=== PATIENT | female | born 1980 | race Caucasian/White ===

== ENCOUNTER → 2022-12-27 08:48 | Outpatient (CLI) | payer BC, SELFPAY ==
--- NOTE | ~2022-12-27 | US_ITS ---
EXAMINATION: US thyroid DATE: 12/27/2022 09:04 INDICATION: Trouble swallowing. TECHNIQUE: Multiple ultrasound images of the thyroid were obtained. COMPARISON: None. FINDINGS: The right thyroid lobe measures 6.0 x 2.3 x 1.7 cm. The left thyroid lobe measures 5.8 x 2.0 x 2.0 c m. In the left thyroid lobe, there is a 1.6 cm solid, hypoechoic, taller than wide nodule with coars e calcifications with lobulated margin (TI-RADS TR5). In the right thyroid lobe, there is a 10 mm mix ed cystic and solid very hypoechoic nodule with smooth margin and peripheral calcifications (TR4). Th ere are subcentimeter nodules in the thyroid. IMPRESSION: 1. Thyroid nodules. Ultrasound-guided fine-needle aspiration of the 1.6 cm left thyroid nodule is rec ommended. Reviewed, dictated and finalized at location E. IMPRESSION: 1. Thyroid nodules. Ultrasound-guided fine-needle aspiration of the 1.6 cm left thyroid nodule is recommended.
== END ==
PROVIDERS: PCP Family Medicine; Visit Provider Family Medicine
DX: R13.10 Dysphagia, unspecified (principal); E04.2 Nontoxic multinodular goiter
CPT/HCPCS: 76536

== ENCOUNTER 2023-01-13 12:08 | Outpatient (CLI) | payer BC, SELFPAY ==
--- NOTE | ~2023-01-13 | US_ITS ---
EXAMINATION: US FNA w image guidance DATE: 01/13/2023 13:18 INDICATION: Thyroid nodule TECHNIQUE: A time-out was performed to verify the patient's name, date of , and procedure to be performed . The procedure and its benefits and risks were discussed with the patient. Risks specifically discus sed included bleeding and infection. The patient understood the risks and agreed to proceed. The neck was prepped and draped in the usual sterile manner. 3 mL 1% lidocaine was used for local anesthesia . 6 passes were made with a 25G needle into the lesion. Appropriate needle location was documented with continuous sonographic guidance. A sterile bandage was applied. There were no immediate compli cations. FINDINGS: Grayscale ultrasound images demonstrate biopsy needles advanced into a 2.0 cm solid hypoechoic nodule with internal coarse calcification in the inferior left thyroid lobe. IMPRESSION: 1. Successful ultrasound-guided fine needle aspiration of a 2.0 cm TI RADS 5 nodule at the inferior left thyroid. Reviewed, dictated and finalized at location A. IMPRESSION: 1. Successful ultrasound-guided fine needle aspiration of a 2.0 cm TI RADS 5 n odule at the inferior left thyroid.
== END 2023-01-13 12:09 | disposition home or self-care (01) ==
LOC: ANHIMG 12:12
PROVIDERS: PCP Family Medicine; Visit Provider Family Medicine
DX: E04.1 Nontoxic single thyroid nodule (principal)
CPT/HCPCS: 10005; 88173; 88305

== ENCOUNTER 2023-07-25 12:48 | Outpatient (CLI) | payer BC, SELFPAY ==
--- NOTE | ~2023-07-25 | US_ITS ---
EXAMINATION: US transvaginal DATE: 07/25/2023 14:38 INDICATION: Pelvic pain. TECHNIQUE: Multiple transvaginal sonographic images of the pelvis were obtained. COMPARISON: CT abdomen and pelvis 07/25/2023 FINDINGS: The uterus measures 11.1 x 5.6 x 6.3 cm. There is no free fluid in the pelvis. The endometrial comple x measures 5 mm in thickness. There is an intrauterine device in expected position. The right ovary m easures 2.9 x 2.6 x 2.4 cm. The left ovary measures 2.0 x 2.6 x 2.1 cm. There is normal vascular flow in the ovaries. IMPRESSION: 1. Intrauterine device in expected position. Reviewed, dictated and finalized at location E.
--- NOTE | ~2023-07-25 | CT_ITS ---
CT of the Abdomen and Pelvis: Indication: Ascites Technique: 2.5 mm axial scans were obtained through the abdomen and pelvis following intravenous adm inistration of 100 cc of Omnipaque 350. Dose reduction technique was used on this scan by utilizing a utomated exposure control and iterative reconstruction technique. The dose-length product (DLP) was 1 219.38 mGy-cm. COMPARISON: 06/01/2023 Findings: Scans through the lung bases are unremarkable. The liver, spleen, pancreas, adrenals and left kidney are within normal limits. Status post cholecyst ectomy. 3 mm nonobstructing right renal stone noted. No evidence of aortic aneurysm. No lymphadenopa thy. No bowel obstruction or bowel wall thickening. There is no evidence to suggest acute appendicitis. Sm all to moderate fat-containing umbilical hernia present. Images through the pelvis were performed. Urinary bladder unremarkable. IUD in place. No adnexal mass evident. Mildly prominent right ovary is similar to prior exam. No ascites. Impression: 3 mm nonobstructing right renal stone. Small to moderate fat-containing umbilical hernia. Reviewed, dictated and finalized at [facility]. Impression: 3 mm nonobstructing right renal stone. Small to moderate fat-containing umbilical hernia.
[2023-07-25 13:16] LABS: Estimated Glomerular Filt Rate > 60
== END 2023-07-25 12:49 ==
PROVIDERS: PCP Family Medicine; Visit Provider Family Medicine
DX: R18.8 Other ascites (principal); Z97.5 Presence of (intrauterine) contraceptive device
CPT/HCPCS: 74177; 76830; Q9967

== ENCOUNTER 2024-10-22 10:15 | Outpatient (CLI) | payer BC, SELFPAY ==
--- NOTE | ~2024-10-22 | US_ITS ---
US thyroid INDICATION: Nontoxic thyroid nodule TECHNIQUE: Real-time sonographic images of the thyroid gland were obtained. COMPARISON: Ultrasound dated 12/27/2022 FINDINGS: The right thyroid lobe measures 5.1 x 1.7 x 1.8 cm. The left thyroid lobe measures 4.9 x 1 .9 x 1.7 cm. Thyroid echotexture is heterogeneous. In the right lobe there is an oval spongiform-appe aring hypoechoic mass which is wider than tall, ill-defined margins and no internal calcifications me asuring 1 cm, TR 2, not suspicious. In the left lobe there is a heterogeneous hypoechoic mass which i s solid, hypoechoic, wider than tall, ill-defined margins with macrocalcifications measuring 1.3 cm, TR 4. IMPRESSION: 1. Bilateral thyroid nodules which are stable or diminished in size compared with prior study. No ma sses meet sonographic criteria for biopsy. Recommend follow-up ultrasound in 12 months. Reviewed, dictated and finalized at location B. IMPRESSION: 1. Bilateral thyroid nodules which are stable or diminished in size compared w ith prior study. No masses meet sonographic criteria for biopsy. Recommend foll ow-up ultrasound in 12 months.
--- OUTSIDE RECORDS SUMMARY | 2024-10-22 10:19 | XMS_ITS | Encounter Summary ---
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
--- OUTSIDE RECORDS SUMMARY | 2024-10-22 10:19 | XMS_ITS | Encounter Summary ---
Author Organization 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
--- OUTSIDE RECORDS SUMMARY | 2024-10-22 10:20 | XMS_ITS ---
Author Organization Unknown Address [address] [place] [phone] Phone Care Team Providers Care Order Builder Loader Name Role Phone JESUS MANUEL Leyva Attending Unavailable NATALIE Leyva Primary Unavailable Immunization Immunization Date Status Additional Notes Code Code System Novel [id number] 01/29/2009 Completed 127 CVX Influenza, split virus, quadrivalent, PF 02/03/2021 Completed 150 CVX Influenza, split virus, quadrivalent, PF 01/20/2022 Completed 150 CVX Influenza, split virus, quadrivalent, PF 01/26/2023 Completed 150 CVX Influenza, recombinant, quadrivalent, PF 01/22/2019 Completed 185 CVX COVID-19, mRNA, LNP-S, PF, 1 00 mcg/0.5mL dose or 50 mcg/0.25mL dose 04/07/2020 Completed 207 CVX COVID-19, mRNA, LNP-S, PF, 1 00 mcg/0.5mL dose or 50 mcg/0.25mL dose 05/16/2020 Completed 207 CVX COVID-19, mRNA, LNP-S, PF, 1 00 mcg/0.5mL dose or 50 mcg/0.25mL dose 02/11/2021 Completed 207 CVX Social History Type Status Start Date End Date Code Code Syst em Smoking History Never smoker (Never Smoked) [id number] SNOMED CT Sex Female Hospital Discharge Instructions Should you have any questions prior to discharge, please contact a member of your healthcare team. If you have left the hospital and have any questions, please contact your primary care physician. Reason For Referral No Data Found Procedures Procedure Name Date Status Code Code Syste m Arthrocentesis Aspir&/Inj Ma fritz Jt/Bursa w/o US 07/03/2024 completed CPT Allergies and Adverse Reactions Allergy Substance Reaction Severity Start Date Concern Status Co de Code System CODEINE Moderate Active ZITHROMAX Moderate Active Plan of Treatment US Pelvis/Transvaginal (88069) 12/07/19 Digital Aliya Screen Bilateral (68754) US Pelvis/Transvaginal (31709) 12/07/19 Digital Aliya Screen Bilateral (26945) Digital Aliya Screen Bilateral (91771) Encounters Encounter Diagnosis Start Date Code Code Sys tem Unilateral primary osteoarthritis, left knee 5 SNOMED-CT Personal Care Team Section Performer Name Performer Role Active Date Inactive MAGDA Fischer PCP - Primary care physician 5-10
--- OUTSIDE RECORDS SUMMARY | 2024-10-22 10:20 | XMS_ITS ---
Author Organization Unknown Address [id number] [place] [phone] Phone Care Team Providers Care Wheel Lacer And Truer Name Role Phone MELIA CROSS Attending Unavailable NATALIE Leyva Primary Unavailable Immunization Immunization Date Status Additional Notes Code Code System Novel [id number] 01/29/2009 Completed 127 CVX Influenza, split virus, [...] 50 mcg/0.25mL dose 02/11/2021 Completed 207 CVX Results KNEE 1-2V RIGHT - Completed: 04/23/2024 08:51 LOINC: \TM00\\12PI\\DRAo\\BM09\ \MRLo\ [address] [address] ---------NAME--------- NUMBER SEX AGE ADMIT DISC. XRAY# F/C TYPE AUGUSTA CAGLE [id number] F 44 04/23/24 04/23/24 68847 BB1 O/P DATE OF : 1980 M/R# [id number] #: [id number] \MRHx\ LOCATION: TRANSCRIBED: 04/23/24 9:41 KNEE 1-2V RIGHT [id number] COMPLETED:04/23/24 8:51 [facility] [id number] {REASON-KNEE: RIGHT KNEE PAIN PHYSICIAN: MELIA INFANTE R A D I O L O G Y R E P O R T CLINICAL INFORMATION: 44 years old, Female; RIGHT KNEE PAIN. TECHNIQUE: 2 views of the right knee were obtained. COMPARISON: None FINDINGS: No acute fracture or dislocation. Moderate to severe joint space narrowing in the medial and patellofemoral compartments with associated subchondral sclerosis and marginal osteophytes. Moderate joint space narrowing in the lateral compartment with subchondral sclerosis and marginal osteophytes. No focal soft tissue swelling. Ovoid calcification measuring up to 3 mm along the posterior aspect of the knee is nonspecific, may be a phlebolith. Loose body can not be excluded. No significant joint effusion. IMPRESSION: 1. No evidence of acute fracture. 2. Arthritic changes as described above. 3. Small nonspecific ovoid calcification posterior to the knee is nonspecific, may be a phlebolith, although other etiologies, including loose body can not be excluded. Correlate with clinical findings. R SLAGMAN \ITLo\ \UNDo\ \UNDx\ \ITLx\ Reviewed and Electronically Signed by: Al Abraham DO Signed Date: 04/23/24 09:41 04/23/24.0944.[facility].to NATALIE MINOR via fax Social History Type Status Start Date End Date Code Code Syst em Smoking History Never smoker (Never Smoked) [id number] SNOMED CT Sex Female Hospital Discharge Instructions Should you have any questions prior to discharge, please contact a member of your healthcare team. If you have left the hospital and have any questions, please contact your primary care physician. Reason For Referral No Data Found Allergies and Adverse Reactions Allergy Substance Reaction Severity Start Date Concern Status Co de Code System CODEINE Moderate Active ZITHROMAX Moderate Active Plan of Treatment US Pelvis/Transvaginal (24726) 12/07/19 Digital Aliya Screen Bilateral (69346) US Pelvis/Transvaginal (51054) 12/07/19 Digital Aliya Screen Bilateral (28516) Digital Aliya Screen Bilateral (72114) Encounters Encounter Diagnosis Start Date Code Code Sys tem Abnormal findings on diagnostic imaging of limbs 04/23 SNOMED-CT Personal Care Team Section Performer Name Performer Role Active Date Inactive MAGDA Fischer PCP - Primary care physician 5-10 Imaging Narrative Notes [facility] 04/23/2024 09:[address] [address] ---------NAME--------- NUMBER SEX AGE ADMIT DISC. XRAY# F/C TYPE AUGUSTA CAGLE [id number] F 44 04/23/24 04/23/24 93566 BB1 O/P DATE OF : 1980 M/R# [id number] #: [id number] LOCATION: TRANSCRIBED: 04/23/24 9:41 KNEE 1-2V RIGHT [id number] COMPLETED:04/23/24 8:51 [facility] [id number] {REASON-KNEE: RIGHT KNEE PAIN PHYSICIAN: MELIA LO RADIOLOGY REPORT CLINICAL INFORMATION: 44 years old, Female; RIGHT KNEE PAIN. TECHNIQUE: 2 views of the right knee were obtained. COMPARISON: None FINDINGS: No acute fracture or dislocation. Moderate to severe joint space narrowing in the medial and patellofemoral compartments with associated subchondral sclerosis and marginal osteophytes. Moderate joint space narrowing in the lateral compartment with subchondral sclerosis and marginal osteophytes. No focal soft tissue swelling. Ovoid calcification measuring up to 3 mm along the posterior aspect of the knee is nonspecific, may be a phlebolith. Loose body can not be excluded. No significant joint effusion. IMPRESSION: 1. No evidence of acute fracture. 2. Arthritic changes as described above. 3. Small nonspecific ovoid calcification posterior to the knee is nonspecific, may be a phlebolith, although other etiologies, including loose body can not be excluded. Correlate with clinical findings. R SLAGMAN Reviewed and Electronically Signed by: Al Abraham DO Signed Date: 04/23/24 09:41 04/23/24.0944.[facility].to NATALIE via fax
--- OUTSIDE RECORDS SUMMARY | 2024-10-22 10:21 | XMS_ITS ---
Author Organization Unknown Address [address] [place] [phone] Phone Care Team Providers Care Telephone Installer Name Role Phone JESUS MANUEL Leyva Attending Unavailable NATALIE Leyva Primary Unavailable Immunization Immunization Date Status Additional Notes Code Code System Novel [id number] 01/29/2009 Completed 127 CVX Influenza, split virus, [...] em Smoking History Never smoker (Never Smoked) [id number] SNOMED CT Sex Female Hospital Discharge Instructions Should you have any questions prior to discharge, please contact a member of your healthcare team. If you have left the hospital and have any questions, please contact your primary care physician. Reason For Referral No Data Found Procedures Procedure Name Date Status Code Code Syste m Arthrocentesis Aspir&/Inj Ma fritz Jt/Bursa w/o US 07/17/2024 completed CPT Allergies and Adverse Reactions Allergy Substance Reaction Severity Start Date Concern Status Co de Code System CODEINE Moderate Active ZITHROMAX Moderate Active Plan of Treatment US Pelvis/Transvaginal (58549) 12/07/19 23 Digital Aliya Screen Bilateral (05464) US Pelvis/Transvaginal (92243) 12/07/19 Digital Aliya Screen Bilateral (49634) Digital Aliya Screen Bilateral (82253) Encounters Encounter Diagnosis Start Date Code Code Sys tem Unilateral primary osteoarthritis, left knee 5 SNOMED-CT Personal Care Team Section Performer Name Performer Role Active Date Inactive MAGDA Fischer PCP - Primary care physician 5-10
--- OUTSIDE RECORDS SUMMARY | 2024-10-22 10:21 | XMS_ITS | Clinical Summary ---
Author Organization [facility] Address [address] [place] [address] Care Team Providers Care Solderer Assembly Repair Name Role Phone Abdifatah Romero MD Primary Care Provider Allergies No known active allergies Medications amLODIPine (NORVASC) 10 MG tablet 6 Active CLONIDINE HCL ER OR Active pantoprazole EC (PROTONIX) 40 MG tablet Active triamterene-hy droCHLOROthiaz marcelo (MAXZIDE-25) 37.5-25 MG tablet Active clobetasol (TEMOVATE) 0.05 % cream APPLY ONE GRAM TWICE DAILY NEEDED 3 Active cloNIDine (CATAPRES) 0.1 MG tablet Take 0.1 mg by mouth 3 (three) times daily. 3 Active MOUNJARO 2.5 MG/0.5ML injection INJECT 2.5MG SUBCUTANEOUSLY WEEKLY 3 Active MOUNJARO 5 MG/0.5ML injection INJECT 0.5 ML UNDER SKIN WEEKLY 3 Active fluorouracil (EFUDEX) 5 % creamIndicatio ns:Porokeratos is,Acute foot pain, left Apply topically 2 (two) times daily. 30 g 1 4 Active imiquimod (ALDARA) 5 % cream Apply 1 packet topically 3 (three) times a week. 12 each 3 4 Active imiquimod (ALDARA) 5 % creamIndicatio ns:Porokeratos is Apply 1 packet topically 3 (three) times a week. 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 Gender Identity Not on file Sexual Orientation Not on file Last Filed Vital Signs Vital Sign Reading Time Taken Comments Blood Pressure 134/54 11/13/2021 1:53 PM CDT Pulse 70 11/13/2021 1:53 PM CDT Temperature 37.2 C (98.9 F) 11/13/2021 1:53 PM CDT Respiratory Rate 18 11/13/2021 1:53 PM CDT Oxygen Saturation 100% 11/13/2021 1:53 PM CDT Inhaled Oxygen Concentration - - Weight 163.3 kg (360 lb) 03/26/2024 1:00 PM FIELD ARTILLERY FIRE CONTROL MAN Height 175.3 cm (5' 9) 03/26/2024 1:00 PM FIELD ARTILLERY FIRE CONTROL MAN Body Mass Index 53.16 03/26/2024 1:00 PM FIELD ARTILLERY FIRE CONTROL MAN Plan of Treatment Health Maintenance Due Date Last Done Comments Cervical Cancer Screening Pa p Smear (Age 30 to 64) Every 3 Years 1980 Annual Physical 1983 Hepatitis C 1998 DTaP, Tdap and Td Vaccines ( 1 - Tdap) 1999 Hepatitis B Vaccines (1 of 3 - 19+ 3-dose series) 1999 Pneumococcal Vaccine: Pediatrics (0 to 5 Years) and At-Risk Patients (6 to 49 Years) (1 of 2 - PCV) 1999 Cervical Cancer Screening Pa p with HPV Testing (Age 30 to 64) Every 5 Years 2010 Cervical Cancer Screening wi th HPV 2010 Mammogram Screening 2020 COVID-19 Vaccine (4 - 2023-2 5 season) 2023 02/11/2021, 05/16/2020, 04/07/2020 HPV Vaccines Aged Out No longer eligi ble based on patient's age to complete this topic Meningococcal B Vaccine Aged Out No l onger eligible based on patient's age to complete this topic Meningococcal Vaccine Aged Out No abel moe eligible based on patient's age to complete this topic RSV Immunizations Under 20 Months Aged Out No longer eligible b ased on patient's age to complete this topic Insurance Advance Directives Documents on File Type Date Recorded Patient Deck Engineer Expl anation Legal Documents 11/29/2013 SLEGAL Care Teams Solderer Assembly Repair Relationship Specialty Start Date End Date Abdifatah Romero MD [address] [place] [address] [place] [phone] PCP - General FAMILY PRACTICE 03/04/20
--- OUTSIDE RECORDS SUMMARY | 2024-10-22 10:21 | XMS_ITS ---
Author Organization Unknown Address [address] [place] [phone] Phone Care Team Providers Care Continuous Drier Helper Name Role Phone JESUS MANUEL Leyva Attending Unavailable NATALIE Leyva Primary Unavailable Immunization Immunization Date Status Additional Notes Code Code System Novel [id number] 01/29/2009 Completed 127 CVX Influenza, split virus, [...] em Smoking History Never smoker (Never Smoked) [id number] SNOMED CT Sex Female Hospital Discharge Instructions Should you have any questions prior to discharge, please contact a member of your healthcare team. If you have left the hospital and have any questions, please contact your primary care physician. Reason For Referral No Data Found Procedures Procedure Name Date Status Code Code Syste m Arthrocentesis, aspiration a nd/or injection, major joint or bursa; without 07/10/2024 completed CP T Allergies and Adverse Reactions Allergy Substance Reaction Severity Start Date Concern Status Co de Code System CODEINE Moderate Active ZITHROMAX Moderate Active Plan of Treatment US Pelvis/Transvaginal (47152) 12/07/19 Digital Aliya Screen Bilateral (08688) US Pelvis/Transvaginal (65748) 12/07/19 Digital Aliya Screen Bilateral (44655) Digital Aliya Screen Bilateral (53009) Encounters Encounter Diagnosis Start Date Code Code Sys tem Unilateral primary osteoarthritis, left knee 5 SNOMED-CT Personal Care Team Section Performer Name Performer Role Active Date Inactive MAGDA Fischer PCP - Primary care physician 5-10
--- OUTSIDE RECORDS SUMMARY | 2024-10-22 10:21 | XMS_ITS ---
Author Organization Unknown Address [address] [place] [phone] Phone Care Team Providers Care Stock Transfer Clerk Name Role Phone ASMITA DAWSON Attending Unavailable NATALIE Leyva Primary Unavailable Immunization Immunization Date Status Additional Notes Code Code System Novel [id number] 01/29/2009 Completed 127 CVX Influenza, split virus, [...] mcg/0.25mL dose 02/11/2021 Completed 207 CVX Results DIG 3D ALIYA SCREENING BILATER AL - Completed: 01/02/2024 16:16 LOINC: See Scanned Image Attachment for Report Dictated By: Trans Initials: Trans Date: 01/03/24 15:12 <<REPDIST>> Social History Type Status Start Date End Date Code Code Syst em Smoking History Never smoker (Never Smoked) [id number] SNOMED CT Sex Female Hospital Discharge Instructions [...] Moderate Active Plan of Treatment US Pelvis/Transvaginal (64538) 12/07/19 Digital Aliya Screen Bilateral (12301) US Pelvis/Transvaginal (11836) 12/07/19 Digital Aliya Screen Bilateral (26902) Digital Aliya Screen Bilateral (56471) Encounters Encounter Diagnosis Start Date Code Code Sys tem Screening mammography 01/02/2024 [id number] SNOMED -CT Personal Care Team Section Performer Name Performer Role Active Date Inactive MAGDA Fischer PCP - Primary care physician 5-10 Imaging Narrative Notes [facility] 01/03/2024 15:13 [place] [id number] RADIOLOGY REPORT Patient Number: [id number] Patient Name: AUGUSTA CAGLE Type: O/P MR Number: [id number] : 1980 Age: 43 Sex: F Room #: Admit Date: 01/02/24 Discharge Date 01/02/24 Ordering Physician: ASMITA DAWSON Family Physician: NATALIE MINOR Second Physician: X-Ray Number : [id number] DIG 3D ALIYA SCREENING BILATERA [id number] COMPLETE:01/02/24 16:16 [id number] (REASONS-DIG 3D ALIYA SCREENING BILATERAL: SCREENING See Scanned Image Attachment for Report Dictated By: Trans Initials: Trans Date: 01/03/24 15:12 <<REPDIST>>
--- OUTSIDE RECORDS SUMMARY | 2024-10-22 10:21 | XMS_ITS | Clinical Summary ---
Author Organization [facility] Address [address] [place] [phone] Care Team Providers Care Sld Educational Aide Name Role Phone Unavailable Primary Care Provider Unavailabl e Encounters Date Type Department Care Team Description 09/25/2024 External Device Data [facility] ABSTRACTION Provider, Abstract 09/04/2024 External Device Data [facility] ABSTRACTION Provider, Abstract 08/29/2024 External Device Data [facility] ABSTRACTION Provider, Abstract 08/28/2024 External Device Data [facility] ABSTRACTION Provider, Abstract from Last 3 Months Social History Tobacco Use Types Packs/Day Years Used Date Smoking Tobacco: Never Assessed Comments Unknown Sex and Gender Information Value Date Recorded Sex Assigned at Not on file 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
--- OUTSIDE RECORDS SUMMARY | 2024-10-22 10:21 | XMS_ITS ---
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 XRAY# F/C TYPE [place]UG[place]A CAGLE [id number] F 44 06/11/24 06/11/24 25381 BB1 O/P DATE OF : 1980 M/R# [id number] #: [id number] \MRHx\ LOCATION: TRANSCRIBED: 06/11/24 10:30 KNEE 3V LEFT 54670 COMPLETED:06/11/24 10:06 [id number] {REASON-KNEE: LEFT KNEE PAIN PHYSICIAN: NATALIE PH R A D I O L O G Y R E P O R T EXAM: KNEE 3V LEFT CLINICAL INDICATION: LEFT KNEE PAIN TECHNIQUE: KNEE 3V LEFT Comparison: None FINDINGS/IMPRESSION: No evidence of acute fracture. Arthritic changes as described above. Small nonspecific ovoid calcification posterior to the knee is nonspecific, may be a phlebolith, although other etiologies, including loose body can not be excluded. Correlate with clinical findings. 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 \ITLo\ \UNDo\ \UNDx\ \ITLx\ Reviewed and Electronically Signed by: Olvin Cruz MD Signed Date: 06/11/24 10:30 Social History Type Status Start Date End Date Code Code Syst em Smoking History Never smoker (Never Smoked) 435666220 SNOMED CT Sex Female Hospital Discharge Instructions [...] Moderate Active Plan of Treatment US Pelvis/Transvaginal (13667) 12/07/19 Digital Aliya Screen Bilateral (46032) US Pelvis/Transvaginal (80264) 12/07/19 23 Digital Aliya Screen Bilateral (17345) Digital Aliya Screen Bilateral (48327) Encounters Encounter Diagnosis Start Date Code Code Sys tem Unilateral primary osteoarthritis, left knee SNOMED-CT Personal Care Team Section Performer Name Performer Role Active Date Inactive MAGDA Fischer PCP - Primary care physician 5-10 Imaging Narrative Notes [facility] 06/11/2024 10:[address] [address] ---------NAME--------- NUMBER SEX AGE ADMIT DISC. XRAY# F/C TYPE [place] PEREZEY TSERING [id number] F 44 06/11/24 06/11/24 29762 BB1 O/P DATE OF : 1980 M/R# [id number] #: [id number] LOCATION: TRANSCRIBED: 06/11/24 10:30 KNEE 3V LEFT 52892 COMPLETED:06/11/24 10:06 31687 {REASON-KNEE: LEFT KNEE PAIN PHYSICIAN: NATALIE PH RADIOLOGY REPORT EXAM: KNEE 3V LEFT CLINICAL INDICATION: LEFT KNEE PAIN TECHNIQUE: KNEE 3V LEFT Comparison: None FINDINGS/IMPRESSION: No evidence of acute fracture. Arthritic changes as described above. Small nonspecific ovoid calcification posterior to the knee is nonspecific, may be a phlebolith, although other etiologies, including loose body can not be excluded. Correlate with clinical findings. 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
--- OUTSIDE RECORDS SUMMARY | 2024-10-22 10:22 | XMS_ITS ---
Author Organization Unknown Address [address] [place] [phone] Phone Care Team Providers Care Multimedia Producer Name Role Phone JESUS MANUEL Leyva Attending Unavailable NATALIE Leyva Primary Unavailable Immunization Immunization Date Status Additional Notes Code Code System Novel [id number] 01/29/2009 Completed 127 CVX Influenza, split virus, [...] em Smoking History Never smoker (Never Smoked) [id number] SNOMED CT Sex Female Hospital Discharge Instructions [...] Moderate Active Plan of Treatment US Pelvis/Transvaginal (73193) 12/07/19 Digital Aliya Screen Bilateral (09718) US Pelvis/Transvaginal (61977) 12/07/19 Digital Aliya Screen Bilateral (16167) Digital Aliya Screen Bilateral (21816) Encounters Encounter Diagnosis Start Date Code Code Sys tem Bilateral primary osteoarthritis of knee 06/19/2024 SNOMED-CT Personal Care Team Section Performer Name Performer Role Active Date Inactive MAGDA Fischer PCP - Primary care physician 5-10
== END 2024-10-22 10:16 | disposition home or self-care (01) ==
PROVIDERS: PCP Family Medicine; Visit Provider Otolaryngology
DX: E04.2 Nontoxic multinodular goiter (principal)
CPT/HCPCS: 76536